=== PATIENT | female | born 1970 | race Caucasian/White ===

== ENCOUNTER 2017-11-08 09:17 | Emergency (ER) | payer BC ==
[~2017-11-08] VITALS: Ht 167.6 cm; Wt 79.0 kg
[2017-11-08 09:25] VITALS: BP 139/90
== END 2017-11-08 10:05 | disposition home or self-care (01) ==
LOC: ER 09:18
DX: G56.02 Carpal tunnel syndrome, left upper limb (principal)
CPT/HCPCS: 99282; A4565